=== PATIENT | male | born 1970 | race Caucasian/White ===

== ENCOUNTER → 2018-11-03 | Outpatient (CLI) | payer OTHER ==
--- NOTE | 2018-11-03 16:36 | RT STRESS TEST REPORT ---
FACILITY: [facility] PATIENT NAME: JOSE ROBERTO BLANC : [id number] MR: [id number] V: [id number] EXAM DATE: ORDERING PHYSICIAN: ROMÁN PABLO TECHNOLOGIST: Sheyla Acquisition Time: 2018-11-03 14:24:23 Total Exercise Time: 00:09:27 Test Indications: R07.89 Medications: none Protocol: BRUCE2 Max HR: 173 BPM 101% of Pred: 171 BPM Max BP: 133/076 mmHG Max Work Load: 10.8 METS He did not experience chest pain or dyspnea. He did complain of some leg ache. EKGs showed some sligh t ST depression in the lateral leads. He did have some ventricular ectopy at rest. The ventricular ectopy did increase with exercise. He did have bigeminy, trigeminy, quadrigeminy. He had a few couplets and one triplet noted as well. The ventricular ectopy did decrease in recovery. IMPRESSION: Suspect at least Intermediate Probability of Ischemia with Increased Ventricular Ectopy. Confirmed by ROEL GRIFFITH ([id number]) on 11/03/2018 4:33:06 PM Referred By: Overread By: ROEL GRIFFITH
== END ==
LOC: RESP 08:37
PROVIDERS: ATTEND Physician Assistant
DX: R07.89 Other chest pain (principal)
CPT/HCPCS: 93017